=== PATIENT | male | born 1980 | race Caucasian/White ===

== ENCOUNTER 2021-04-22 16:49 | Emergency (ER) | payer OTHER ==
[~2021-04-22 16:49] MED LIST: HYDROCODON-ACE1 EAC2 PO
[2021-04-22] MEDS ORDERED: IBUPROFEN800 MG PO (21:10)
== END 2021-04-22 21:55 | disposition home or self-care (01) ==
LOC: ER1 16:49
DX: Z20.822 Contact with and (suspected) exposure to COVID-19 (principal); R52 Pain, unspecified; Z90.49 Acquired absence of other specified parts of digestive tract; F17.210 Nicotine dependence, cigarettes, uncomplicated
CPT/HCPCS: 99283; U0002